=== PATIENT | male | born 1975 | race Hispanic/Latino ===

== ENCOUNTER 2020-06-07 12:03 | Observation (INO) | payer BC ==
--- NOTE | 2020-06-07 12:42 | RAD REPORT ---
EXAM DESCRIPTION: Lizz Single View06/07/2020 12:35 pm CLINICAL HISTORY: Cough COMPARISON: 2018 FINDINGS: The lungs appear clear of acute infiltrate. The heart is normal size IMPRESSION: No acute abnormalities displayed
[2020-06-07] MEDS ORDERED: METOPROLOL TAR 25 MG TAB ONE (12:44)
[2020-06-07] MEDS ORDERED: ASPIRIN 81 MG CHEWABLE TABLET ONE (12:44)
[2020-06-07] MEDS ORDERED: NA CHLORIDE 0.9% 1,000 ML ONE (12:45)
[2020-06-07 13:03] LABS: Absolute Lymphocytes (CBC) 1.4 K/uL (0.7-4.9); Basophils % 0.6 % (0-1.3); Hematocrit 43.6 % (39.6-49.0); MPV 10.6 fL (7.6-11.3); RBC Red Blood Cell Count 5.06 M/uL (4.33-5.43)
[2020-06-07 13:16] LABS: ALT/SGPT 44 U/L (12-78); AST/SGOT 21 U/L (15-37); Albumin 3.7 g/dL (3.4-5.0); Alkaline Phosphatase 74 U/L (45-117); BUN Blood Urea Nitrogen 14 mg/dL (7-18); Bicarbonate 29 mmol/L (21-32); Bilirubin Direct 0.1 mg/dL (0-0.2); Bilirubin Total 0.5 mg/dL (0.2-1.0); Glucose Level 118 mg/dL (74-106); Lipase 74 U/L (73-393); Magnesium 2.1 mg/dL (1.8-2.4); NT PRO-BNP 30 pg/mL (<125); Potassium 3.9 mmol/L (3.5-5.1); Protein, Total 7.5 g/dL (6.4-8.2); Sodium Level 142 mmol/L (136-145); Troponin (Emerg Dept Use Only) < 0.02 ng/mL (0.0-0.045)
[2020-06-07] MEDS ORDERED: ENOXAPARIN 100 MG/ML SYR SQ ONE (14:23)
--- NOTE | 2020-06-07 14:47 | EDPHYS ---
Physician Documentation [facility] Name: Alfonso Perez Age: 45 yrs Sex: Male : 1975 Arrival Date: 06/07/2020 Time: 12:03 Bed 2 Private MD: ED Physician Luis Eduardo Quinn HPI: 06/07 14:00 This 45 yrs old Male presents to ER via Ambulatory with complaints of Chest taz Pain. 14:00 The patient or guardian reports chest pain that is located primarily in the substernal taz area, anterior chest wall, left. Onset: 5 day(s) ago. The pain radiates to the left arm. Associated signs and symptoms: Pertinent positives: nausea, shortness of breath. The chest pain is described as a pressure. Duration: The patient or guardian reports multiple episodes, that have now resolved. Modifying factors: The symptoms are alleviated by remaining still, rest. Severity of pain: At its worst the pain was moderate in the emergency department the pain has resolved and did so just prior to arrival. The patient has experienced similar episodes in the past, several times. Historical: - Allergies: 12:12 No Known Allergies; sv - Home Meds: 12:49 Tribenzor 40-5-12.5 mg oral tab [Active]; jl7 - PMHx: 12:49 Hypertension; jl7 - PSHx: 12:12 None; sv - Immunization history:: Adult Immunizations. - Social history:: Smoking status: Patient denies any tobacco usage or history of. - Family history:: not pertinent. ROS: 14:00 Constitutional: Negative for fever, chills, and weight loss, Eyes: Negative for injury, taz pain, redness, and discharge, ENT: Negative for injury, pain, and discharge, Neck: Negative for injury, pain, and swelling, Cardiovascular: Negative for chest pain, palpitations, and edema, Respiratory: Negative for shortness of breath, cough, wheezing, and pleuritic chest pain, Abdomen/GI: Negative for abdominal pain, nausea, vomiting, diarrhea, and constipation, Back: Negative for injury and pain, : Negative for injury, bleeding, discharge, and swelling, MS/Extremity: Negative for injury and deformity, Skin: Negative for injury, rash, and discoloration, Neuro: Negative for headache, weakness, numbness, tingling, and seizure, Psych: Negative for depression, anxiety, suicide ideation, homicidal ideation, and hallucinations, Allergy/Immunology: Negative for hives, rash, and allergies, Endocrine: Negative for neck swelling, polydipsia, polyuria, polyphagia, and marked weight changes, Hematologic/Lymphatic: Negative for swollen nodes, abnormal bleeding, and unusual bruising. Exam: 14:01 Constitutional: This is a well developed, well nourished patient who is awake, alert, taz and in no acute distress. Head/Face: Normocephalic, atraumatic. Eyes: Pupils equal round and reactive to light, extra-ocular motions intact. Lids and lashes normal. Conjunctiva and sclera are non-icteric and not injected. Cornea within normal limits. Periorbital areas with no swelling, redness, or edema. ENT: Nares patent. No nasal discharge, no septal abnormalities noted. Tympanic membranes are normal and external auditory canals are clear. Oropharynx with no redness, swelling, or masses, exudates, or evidence of obstruction, uvula midline. Mucous membranes moist. Neck: Trachea midline, no thyromegaly or masses palpated, and no cervical lymphadenopathy. Supple, full range of motion without nuchal rigidity, or vertebral point tenderness. No Meningismus. Chest/axilla: Normal chest wall appearance and motion. Nontender with no deformity. No lesions are appreciated. Cardiovascular: Regular rate and rhythm with a normal S1 and S2. No gallops, murmurs, or rubs. Normal PMI, no JVD. No pulse deficits. Respiratory: Lungs have equal breath sounds bilaterally, clear to auscultation and percussion. No rales, rhonchi or wheezes noted. No increased work of breathing, no retractions or nasal flaring. Abdomen/GI: Soft, non-tender, with normal bowel sounds. No distension or tympany. No guarding or rebound. No evidence of tenderness throughout. Back: No spinal tenderness. No costovertebral tenderness. Full range of motion. Skin: Warm, dry with normal turgor. Normal color with no rashes, no lesions, and no evidence of cellulitis. MS/ Extremity: Pulses equal, no cyanosis. Neurovascular intact. Full, normal range of motion. Neuro: Awake and alert, GCS 15, oriented to person, place, time, and situation. Cranial nerves II-XII grossly intact. Motor strength 5/5 in all extremities. Sensory grossly intact. Cerebellar exam normal. Normal gait. Psych: Awake, alert, with orientation to person, place and time. Behavior, mood, and affect are within normal limits. 14:01 Musculoskeletal/extremity: ROM: full active range of motion, full passive range of motion, Circulation is intact in all extremities. Sensation intact. Compartment Syndrome exam of affected extremity: is normal. DVT Exam: No signs of deep vein thrombosis. no pain, no swelling, no tenderness, negative Homans' sign noted on exam, no appreciated bluish discoloration, no erythema, no increased warmth. 14:08 ECG was reviewed by the Attending Physician. [facility] Vital Signs: 12:12 BP 148 / 93; Pulse 75; Resp 18; Temp 98; Pulse Ox 100% ; Weight 124.74 kg; Height 5 ft. sv 10 in. (177.80 cm); 12:42 BP 136 / 92; Pulse 82; Resp 16; Pulse Ox 100% ; Pain 1/10; jl7 13:21 BP 131 / 84; Pulse 74; Resp 17; Pulse Ox 97% on R/A; tw2 14:20 BP 120 / 96; Pulse 69; Resp 17; Pulse Ox 98% on R/A; tw2 15:20 BP 130 / 91; Pulse 61; Resp 17; Pulse Ox 99% on R/A; tw2 16:30 BP 132 / 99; Pulse 64; Resp 15; Pulse Ox 99% ; jl7 12:12 Body Mass Index 39.46 (124.74 kg, 177.80 cm) sv MDM: 12:21 Patient medically screened. [facility] 14:02 Differential diagnosis: abnormal EKG, anxiety, coronary artery disease chest wall pain, taz cholecystitis, Cholelithiasis peptic ulcer disease, pleurisy, pulmonary embolus, stable angina, unstable angina. HEART Score: History: Moderately Suspicious (1), ECG: Non specific repolarization disturbance / LBTB / PM (1), Age: > 45 and < 65 years (1), Risk Factors: > or = 3 Risk factors for atherosclerotic disease (2), [Hypercholesterolemia] [Hypertension] [+ Family HX] [Obesity] Troponin: < or = 1 x Normal Limit (0). The patient was given aspirin in the Emergency Department. The patient's deep vein thrombosis risk score was calculated as follows: Total Score: 0. This patient was found to be at low risk for a deep vein thrombosis by using the Well's assessment criteria. The patient's pulmonary embolism risk score was calculated as follows: Total Score: 0-2 points. This patient was found to be at low risk for a pulmonary embolism by using the Well's assessment criteria. JERRY Risk Score: TOTAL SCORE = 0. Data reviewed: vital signs, nurses notes, lab test result(s), EKG, radiologic studies. Data interpreted: manager float: rate is 74 beats/min, rhythm is regular, Pulse oximetry: on room air is 97 %. Test interpretation: by ED physician or midlevel provider: ECG, plain radiologic studies. Counseling: I had a detailed discussion with the patient and/or guardian regarding: the historical points, exam findings, and any diagnostic results supporting the discharge/admit diagnosis, the presence of at least one elevated blood pressure reading (>120/80) during this emergency department visit, lab results, radiology results, the need for further work-up and treatment in the hospital. ED course: dw patient and his , very important to admit with risk and his story. 06/07 12:22 Order name: Basic Metabolic Panel; Complete Time: 13:59 06/07 12:22 Order name: CBC with Diff; Complete Time: 13:59 06/07 12:22 Order name: LFT's; Complete Time: 13:59 06/07 12:22 Order name: Magnesium; Complete Time: 13:59 06/07 12:22 Order name: NT PRO-BNP; Complete Time: 13:59 06/07 12:22 Order name: Troponin (emerg Dept Use Only); Complete Time: 13:59 06/07 12:22 Order name: XRAY Chest (1 view); Complete Time: 13:59 06/07 12:22 Order name: Lipase; Complete Time: 13:59 [facility] 06/07 12:22 Order name: EKG; Complete Time: 12:23 06/07 12:22 Order name: Cardiac monitoring; Complete Time: 12:42 06/07 12:22 Order name: EKG - Nurse/Tech; Complete Time: 12:42 06/07 12:22 Order name: IV Saline Lock; Complete Time: 12:42 06/07 12:22 Order name: Labs collected and sent; Complete Time: 12:42 [facility] 06/07 12:22 Order name: O2 Per Protocol; Complete Time: 12:42 [facility] 06/07 12:22 Order name: O2 Sat Monitoring; Complete Time: 12:42 [facility] 06/07 15:44 Order name: CONS Physician Consult EDAZ EC:08 Rate is 74 beats/min. Rhythm is regular. QRS [place] is Normal. NH interval is normal. QRS taz interval is normal. QT interval is normal. Q waves are Present in leads III, aVF. T waves are Normal. No ST changes noted. Clinical impression: NSR w/ Non-specific ST/T Changes and No evidence of ischemia. Administered Medications: 12:41 Drug: Lopressor 25 mg Route: PO; jl7 14:00 Follow up: Response: No adverse reaction jl7 12:42 Drug: NS 0.9% 1000 ml Route: IV; Rate: 125 ml/hr; Site: left antecubital; jl7 17:00 Follow up: Response: No adverse reaction; IV Status: Infusion continued upon admission jl7 12:42 Drug: Aspirin Chewable Tablet 324 mg Route: PO; jl7 13:30 Follow up: Response: No adverse reaction jl7 14:14 Drug: Lovenox 1 mg/kg Route: Sub-Q; Site: right lower abdomen; tw2 15:00 Follow up: Response: No adverse reaction jl7 14:35 Not Given (not available per pharmacy): Zocor 40 mg PO once tw2 14:36 Drug: Lipitor 10 mg Route: PO; tw2 17:00 Follow up: Response: No adverse reaction jl7 Disposition: 06/07/20 14:07 Hospitalization ordered by Maikel Ferreira for Observation. Preliminary diagnosis are Unstable angina, Chest pain, unspecified, Essential (primary) hypertension. - Bed requested for Telemetry/MedSurg (observation). - Status is Observation. jl7 - Condition is Fair. - Problem is new. - Symptoms have improved. Signatures: Dispatcher [employer] EDMS Lo Horne, RN Luis Eduardo Harley MD MD cha Wise, Tara, RN RN tw2 Herman Hook RN RN jl7 Gela Bustamante Corrections: (The following items were deleted from the chart) 12:49 12:12 PMHx: None; sv jl7 16:06 14:07 Hospitalization Ordered by Maikel Ferreira MD for Observation. Preliminary eb diagnosis is Unstable angina; Chest pain, unspecified; Essential (primary) hypertension. Bed requested for Telemetry/MedSurg (observation). Status is Observation. Condition is Fair. Problem is new. Symptoms have improved. taz 17:14 16:06 06/07/2020 14:07 Hospitalization Ordered by Maikel Ferreira MD for Observation. jl7 Preliminary diagnosis is Unstable angina; Chest pain, unspecified; Essential (primary) hypertension. Bed requested for Telemetry/MedSurg (observation). Status is Observation. Condition is Fair. Problem is new. Symptoms have improved. eb
--- NOTE | 2020-06-07 14:47 | ER ---
Nurse's Notes [facility] Name: Alfonso Perez Age: 45 yrs Sex: Male : 1975 Arrival Date: 06/07/2020 Time: 12:03 Bed 2 Private MD: Diagnosis: Unstable angina;Chest pain, unspecified;Essential (primary) hypertension Presentation: 06/07 12:10 Chief complaint: Patient states: left sided chest pain that radiates to the left arm sv started a couple of days ago. Coronavirus screen: Client denies travel out of the [place] in the last 14 days. Risk Assessment: Do you want to hurt yourself or someone else? Patient reports no desire to harm self or others. Onset of symptoms was June 05, 2020. 12:10 Method Of Arrival: Ambulatory sv 12:10 Acuity: NATASHA 3 sv 12:12 Ebola Screen: No symptoms or risks identified at this time. Initial Sepsis Screen: Does sv the patient meet any 2 criteria? No. Patient's initial sepsis screen is negative. Does the patient have a suspected source of infection? No. Patient's initial sepsis screen is negative. Historical: - Allergies: 12:12 No Known Allergies; sv - Home Meds: 12:49 Tribenzor 40-5-12.5 mg oral tab [Active]; jl7 - PMHx: 12:49 Hypertension; jl7 - PSHx: 12:12 None; sv - Immunization history:: Adult Immunizations. - Social history:: Smoking status: Patient denies any tobacco usage or history of. - Family history:: not pertinent. Screenin:42 Abuse screen: Denies threats or abuse. Denies injuries from another. Nutritional jl7 screening: No deficits noted. Tuberculosis screening: No symptoms or risk factors identified. Fall Risk IV access (20 points). Total Trivedi Fall Scale indicates No Risk (0-24 pts). Assessment: 12:42 General: Appears in no apparent distress. uncomfortable, Behavior is calm, cooperative, jl7 appropriate for age. Pain: Complains of pain in anterior aspect of left upper chest Pain radiates to left scapular area and left arm Pain currently is 1 out of 10 on a pain scale. at worst was 5 out of 10 on a pain scale. Quality of pain is described as sharp, Pain began 30 min ago. "It happened on Wednesday and then again today." Is intermittent. Neuro: Level of Consciousness is awake, alert, obeys commands, Oriented to person, place, time, situation. Cardiovascular: Denies palpitations, shortness of breath, Patient's skin is warm and dry. Respiratory: Airway is patent Respiratory effort is even, unlabored, Respiratory pattern is regular, symmetrical. Derm: Skin is pink, warm \\T\\ dry. 13:21 Reassessment: Patient appears in no apparent distress at this time. No changes from tw2 previously documented assessment. Patient and/or family updated on plan of care and expected duration. Pain level reassessed. Patient is alert, oriented x 3, equal unlabored respirations, skin warm/dry/pink. 14:20 Reassessment: Patient appears in no apparent distress at this time. No changes from tw2 previously documented assessment. Patient and/or family updated on plan of care and expected duration. Pain level reassessed. Patient is alert, oriented x 3, equal unlabored respirations, skin warm/dry/pink. 15:20 Reassessment: Patient appears in no apparent distress at this time. No changes from tw2 previously documented assessment. Patient and/or family updated on plan of care and expected duration. Pain level reassessed. Patient is alert, oriented x 3, equal unlabored respirations, skin warm/dry/pink. 16:41 Reassessment: Report given to GRACE Orta who states to give her a moment to prepare ss the room for admission. Vital Signs: 12:12 BP 148 / 93; Pulse 75; Resp 18; Temp 98; Pulse Ox 100% ; Weight 124.74 kg; Height 5 ft. sv 10 in. (177.80 cm); 12:42 BP 136 / 92; Pulse 82; Resp 16; Pulse Ox 100% ; Pain 1/10; jl7 13:21 BP 131 / 84; Pulse 74; Resp 17; Pulse Ox 97% on R/A; tw2 14:20 BP 120 / 96; Pulse 69; Resp 17; Pulse Ox 98% on R/A; tw2 15:20 BP 130 / 91; Pulse 61; Resp 17; Pulse Ox 99% on R/A; tw2 16:30 BP 132 / 99; Pulse 64; Resp 15; Pulse Ox 99% ; jl7 12:12 Body Mass Index 39.46 (124.74 kg, 177.80 cm) sv ED Course: 12:03 Patient arrived in ED. ag5 12:10 Arm band placed on. sv 12:11 Triage completed. sv 12:19 Herman Hook RN is Primary Nurse. jl7 12:21 Luis Eduardo Quinn MD is Attending Physician. taz 12:28 Primary Nurse role handed off by Herman Hook RN tw2 12:28 Tanisha Reynoso RN is Primary Nurse. tw2 12:35 XRAY Chest (1 view) In Process Unspecified. EDMS 12:42 Patient has correct armband on for positive identification. Placed in gown. Bed in low jl7 position. Call light in reach. Side rails up X2. die cut operator on. Pulse ox on. NIBP on. 12:42 Initial lab(s) drawn, by me, sent to lab. Inserted saline lock: 20 gauge in left jl7 antecubital area, using aseptic technique. Blood collected. Patient maintains SpO2 saturation greater than 95% on room air. 12:50 Primary Nurse role handed off by Tanisha Reynoso RN jl7 12:50 Herman Hook RN is Primary Nurse. jl7 14:05 Maikel Ferreira MD is Hospitalizing Provider. taz 17:14 No provider procedures requiring assistance completed. Patient admitted, IV remains in jl7 place. intact, No redness/swelling at site. Administered Medications: 12:41 Drug: Lopressor 25 mg Route: PO; jl7 14:00 Follow up: Response: No adverse reaction jl7 12:42 Drug: NS 0.9% 1000 ml Route: IV; Rate: 125 ml/hr; Site: left antecubital; jl7 17:00 Follow up: Response: No adverse reaction; IV Status: Infusion continued upon admission jl7 12:42 Drug: Aspirin Chewable Tablet 324 mg Route: PO; jl7 13:30 Follow up: Response: No adverse reaction jl7 14:14 Drug: Lovenox 1 mg/kg Route: Sub-Q; Site: right lower abdomen; tw2 15:00 Follow up: Response: No adverse reaction jl7 14:35 Not Given (not available per pharmacy): Zocor 40 mg PO once tw2 14:36 Drug: Lipitor 10 mg Route: PO; tw2 17:00 Follow up: Response: No adverse reaction jl7 Outcome: 14:07 Decision to Hospitalize by Provider. taz 17:14 Admitted to Tele accompanied by tech, via wheelchair, room 411, with chart, Report jl7 called to GRACE Murguia 17:14 Condition: stable 17:14 Discharge instructions given to patient, Instructed on the need for admit, Demonstrated understanding of instructions. 17:14 Patient left the ED. jlKimberlee 17:14 Admitted to Tele accompanied by tech, via stretcher, via wheelchair, room 411, with chart, Report called to GRACE Orta Signatures: Dispatcher [employer] EDLo Hyde RN RN Luis Eduardo Weiner MD MD cha Smirch, Shelby RN RN Tanisha Licona RN RN 2 Herman Hook RN RN jl7 Yulisa Lou 5 Corrections: (The following items were deleted from the chart) 12:49 12:12 PMHx: None; cher vargas
[2020-06-07] MEDS ORDERED: ATORVASTATIN 10 MG TAB PO ONE (15:00)
--- NOTE | 2020-06-07 15:42 | P.HP ---
Certification for Inpatient Patient admitted to: Observation With expected LOS: <2 Midnights Practitioner: I am a practitioner with admitting privileges, knowledge of patient current condition, hospital course, and medical plan of care. Services: Services provided to patient in accordance with Admission requirements found in Title 42 Section 412.3 of the Code of Federal Regulations Patient History Date of Service: 06/07/20 Primary Care Provider: Dr. Rey Reason for admission: Chest pain, r/o ACS History of Present Illness: All 45-year-old obese male presents after a 30 min episode of chest pain, associated with left arm pain and tingling. He reports he was just driving home, he was not given any exertional activities today. He reports the pain is difficult to describe common may be a combination of soreness and pressure. He denies any recent injuries, overuse, or strenuous exercise. He has had 2 other episodes of similar chest pain, both occurred while he was only walking a short distance. They occurred this past Wednesday and last Wednesday. Both episodes only lasted approximately 20 min and resolved after sitting/slowing down. This he also endorses a 2 week history of dyspnea on exertion, even with just walking from his garage to his mailbox. He called his PCP, recommended an appointment with Cardiology, however patient was scheduled for next week. The pain did resolve so upon arrival to the ED without any intervention. In the ED, EKG: Q-waves in the inferior leads, no ST changes, 1 T-wave inversion in aVL, troponin negative, BNP: 30 He otherwise denies vision changes, orthopnea, abdominal pain, dysuria, change in bowel/bladder habits, rashes, lesions, swelling. Allergies No Known Allergies Allergy (Unverified 06/07/20 17:25) Home medications list reviewed: Yes Home Medications: Olmesartan/Amlodipin/Hcthiazid [[id number] 40-5-12.5] 1 tab PO DAILY 06/07/20 - Family History Family History: Reviewed- Non-Contributory (Grandparents with [place] in their 70s) - Social History Smoking Status: Never smoker Alcohol use: Yes Caffeine use: Yes Place of Residence: Home Review of Systems 10-point ROS is otherwise unremarkable Physical Examination - Physical Exam General: Alert, In no apparent distress, Obese HEENT: Atraumatic, Mucous membr. moist/pink, EOMI, Sclerae nonicteric Neck: Supple, 2+ carotid pulse no bruit, No LAD, Without JVD or thyroid abnormality Respiratory: Clear to auscultation bilaterally, Normal air movement Cardiovascular: Regular rate/rhythm, Normal S1 S2, Edema (Trace to ankles bilaterally) Gastrointestinal: Soft and benign, Non-distended, No tenderness Musculoskeletal: No tenderness Integumentary: No rashes Neurological: Normal speech, Normal affect - Studies Laboratory Data (last 24 hrs) 06/07/20 12:32: WBC 7.0, Hgb 14.8, Hct 43.6, Plt Count 222 06/07/20 12:32: Sodium 142, Potassium 3.9, BUN 14, Creatinine 0.91, Glucose 118 H, Magnesium 2.1, Total Bilirubin 0.5, AST 21, ALT 44, Alkaline Phosphatase 74, Lipase 74 Assessment and Plan - Advance Directives Does patient have a Living Will: No Does patient have a Durable POA for Healthcare: No Physician Review Additional Text: Chest pain, unstable angina -will bring patient in for observation overnight -trend troponins, repeat EKG in the morning -echocardiogram ordered, hopefully can be done today -Cardiology consulted, patient will likely need a stress test -patient received aspirin and Lovenox, will give metoprolol and statin HTN -hypertensive here, restart home meds Time Spent Managing Pts Care (In Minutes): 55
[2020-06-07 17:25] VITALS: BMI 41.2
[2020-06-07] MEDS ORDERED: ACETAMINOPHEN 500 MG TAB PO PRN (17:25)
[2020-06-07] MEDS ORDERED: MORPHINE 2 MG/ML SYR IV PRN (18:24)
[2020-06-07 18:51] LABS: Troponin I 0.02 ng/mL (0.0-0.045)
[2020-06-07] MEDS: ENOXAPARIN 40 MG/0.4 ML SQ SCH (20:00)
[2020-06-07] MEDS ORDERED: ATORVASTATIN 40 MG TAB PO SCH (21:00)
[2020-06-07] MEDS ORDERED: METOPROLOL TAR 50 MG TAB PO SCH (21:00)
[2020-06-08 04:56] LABS: BUN Blood Urea Nitrogen 14 mg/dL (7-18); Bicarbonate 26 mmol/L (21-32); Glucose Level 110 mg/dL (74-106); Potassium 4.3 mmol/L (3.5-5.1); Sodium Level 144 mmol/L (136-145)
[2020-06-08 05:00] LABS: Absolute Lymphocytes (CBC) 2.1 K/uL (0.7-4.9); Basophils % 1.1 % (0-1.3); Hematocrit 40.9 % (39.6-49.0); Lymphocytes % 32.2 % (15.3-44.8); MPV 10.5 fL (7.6-11.3); RBC Red Blood Cell Count 4.73 M/uL (4.33-5.43)
[2020-06-08 08:12] VITALS: BP 134/84; TEMP 97.5
[2020-06-08] MEDS: ENOXAPARIN 40 MG/0.4 ML SQ SCH (08:39)
[2020-06-08] MEDS ORDERED: HCTHIAZID PO SCH (09:00)
[2020-06-08] MEDS ORDERED: AMLODIPINE 5 MG TAB PO SCH (09:00)
[2020-06-08] MEDS ORDERED: VALSARTAN 160 MG TAB PO SCH (09:00)
[2020-06-08] MEDS ORDERED: [UNRECOGNIZED DRUG - OTHER] PO SCH (09:00)
[2020-06-08] MEDS ORDERED: ASPIRIN EC 81 MG TAB PO SCH (09:00)
[2020-06-08] MEDS ORDERED: hydroCHLOROthiazide 12.5 MG CAP PO SCH (09:00)
[2020-06-08] MEDS ORDERED: AMLODIPIN PO SCH (09:00)
[2020-06-08] MEDS ORDERED: OLMESARTAN PO SCH (09:00)
[2020-06-08] MEDS ORDERED: METOPROLOL TAR 25 MG TAB PO SCH (09:00)
[2020-06-08] MEDS ORDERED: METOPROLOL TAR 50 MG TAB PO SCH (09:00)
--- NOTE | 2020-06-08 09:00 | EKG ---
Test Date: 2020-06-08 Test Time: 07:15:24 Hiv Counselor: RYAN MEASUREMENT RESULTS: Intervals: Rate: 59 CA: 170 QRSD: 98 QT: 404 QTc: 399 [place]: P: 30 CA: 170 QRS: 73 T: 103 INTERPRETIVE STATEMENTS: Sinus bradycardia Otherwise normal ECG Compared to ECG 06/07/2020 12:15:41 Sinus rhythm no longer present Myocardial infarct finding no longer present Electronically Signed On 06-08-20 08:59:49 CDT by Scott Miller
--- NOTE | 2020-06-08 09:01 | EKG ---
Test Date: 2020-06-07 Test Time: 12:15:41 Shovel Operator: MONSE MEASUREMENT RESULTS: Intervals: Rate: 74 [place]: 160 QRSD: 88 QT: 338 QTc: 375 [place]: P: 23 [place]: 160 QRS: 71 T: 85 INTERPRETIVE STATEMENTS: Normal sinus rhythm Possible Inferior infarct, age undetermined Abnormal ECG No previous ECG available for comparison Electronically Signed On 06-08-20 09:00:10 CDT by Scott Miller
[2020-06-08 09:21] VITALS: O2SAT 96
--- NOTE | 2020-06-08 10:09 | P.DS ---
Admission Date: 06/07/20 Discharge Date: 06/08/20 Primary Care Provider: Dr. Rey Disposition: ROUTINE DISCHARGE Discharge Condition: GOOD Reason for Admission: Chest pain, r/o ACS Consultations: Cardiology - Dr. Miller Brief History of Present Illness: All 45-year-old obese male presents after a 30 min episode of chest pain, associated with left arm pain and tingling. He reports he was just driving home, he was not given any exertional activities today. He reports the pain is difficult to describe common may be a combination of soreness and pressure. He denies any recent injuries, overuse, or strenuous exercise. He has had 2 other episodes of similar chest pain, both occurred while he was only walking a short distance. They occurred this past Wednesday and last Wednesday. Both episodes only lasted approximately 20 min and resolved after sitting/slowing down. This he also endorses a 2 week history of dyspnea on exertion, even with just walking from his garage to his mailbox. He called his PCP, recommended an appointment with Cardiology, however patient was scheduled for next week. The pain did resolve so upon arrival to the ED without any intervention. In the ED, EKG: Q-waves in the inferior leads, no ST changes, 1 T-wave inversion in aVL, troponin negative, BNP: 30 He otherwise denies vision changes, orthopnea, abdominal pain, dysuria, change in bowel/bladder habits, rashes, lesions, swelling. Hospital Course: Patient was kept overnight. Troponin were trended and remained <0.02. He had no recurrence of his chest pain. Unfortunately, an echocardiogram and stress test were unable to be done during this hospitalization. Cardiology was consulted and felt patient was stable to be discharged home to follow up in 3 days in the office. He was discharged home with metoprolol, statin, and aspirin. Vital Signs/Physical Exam: Temp Pulse Resp BP Pulse Ox 97.5 F 60 18 134/84 98 06/08/20 08:00 06/08/20 08:39 06/08/20 08:00 06/08/20 08:39 06/08/20 08:00 General: Alert, In no apparent distress HEENT: PERRLA, EOMI, Sclerae nonicteric Neck: Supple, JVD not distended Respiratory: Clear to auscultation bilaterally, Normal air movement Cardiovascular: Regular rate/rhythm, Normal S1 S2, Edema (trace bilaterally to ankles) Gastrointestinal: Soft and benign, Non-distended, No tenderness Musculoskeletal: No tenderness Integumentary: No rashes Neurological: Normal speech, Normal affect Laboratory Data at Discharge: WBC 6.6 K/uL (4.3-10.9) 06/08/20 04:00 Hgb 14.1 g/dL (13.6-17.9) 06/08/20 04:00 Hct 40.9 % (39.6-49.0) 06/08/20 04:00 Plt Count 183 K/uL (152-406) 06/08/20 04:00 Sodium 144 mmol/L (136-145) 06/08/20 04:00 Potassium 4.3 mmol/L (3.5-5.1) 06/08/20 04:00 BUN 14 mg/dL (7-18) 06/08/20 04:00 Creatinine 0.81 mg/dL (0.55-1.3) 06/08/20 04:00 Glucose 110 mg/dL (74-106) H 06/08/20 04:00 Magnesium 2.1 mg/dL (1.8-2.4) 06/07/20 12:32 Total Bilirubin 0.5 mg/dL (0.2-1.0) 06/07/20 12:32 AST 21 U/L (15-37) 06/07/20 12:32 ALT 44 U/L (12-78) 06/07/20 12:32 Alkaline Phosphatase 74 U/L (45-117) 06/07/20 12:32 Troponin I < 0.02 ng/mL (0.0-0.045) 06/08/20 07:52 Triglycerides 104 mg/dL (<150) 06/07/20 17:58 Cholesterol 154 mg/dL (<200) 06/07/20 17:58 HDL Cholesterol 30 mg/dL (40-60) L 06/07/20 17:58 Cholesterol/HDL Ratio 5.13 06/07/20 17:58 Lipase 74 U/L (73-393) 06/07/20 12:32 Home Medications: Olmesartan/Amlodipin/Hcthiazid [Mctdebo-Zyumqy-Jbxs 40-5-12.5] 1 tab PO DAILY 06/07/20 Aspirin [Aspirin EC 81 MG] 81 mg PO DAILY 30 Days #30 tablet. 06/08/20 Atorvastatin Calcium [Lipitor] 40 mg PO BEDTIME 30 Days #30 tab 06/08/20 Metoprolol Tartrate [Lopressor*] 25 mg PO BID 30 Days #60 tab 06/08/20 New Medications: Aspirin [Aspirin EC 81 MG] 81 mg PO DAILY 30 Days #30 tablet. Atorvastatin Calcium [Lipitor] 40 mg PO BEDTIME 30 Days #30 tab Metoprolol Tartrate [Lopressor*] 25 mg PO BID 30 Days #60 tab Patient Discharge Instructions: Follow up with Dr. Miller on Wednesday (06/11/20) as scheduled. Follow up with your PCP within 1-2 weeks. Diet: AHA Activity: Ad chin Time spent managing pt's care (in minutes): 35
--- NOTE | 2020-06-09 12:30 | CON ---
Date of Consultation: 06/08/2020 Reason For Admission: Chest pain. History Of Present Illness: Mr. Perez is a patient of Dr. Elijah Rey who has been having some dy spnea on exertion for about a week or two, saw Dr. Rey who referred him to Dr. Germain. The patie nt could not have an appointment until next week, but his symptoms got worse and he came to the [facility] en[facility] room with hypertension, shortness of breath, and chest tightness on exertion. Denied PND, ortho pnea, pedal edema, palpitation, or syncope. He has admitted to gaining significant weight recently. Denies fever or chills or cough. In the emergency room, he was noted to have a normal chest x-ray, normal EKG, normal troponin, normal BNP. His blood pressure has improved. Past Medical History: Includes hypertension. Allergies: NOTHING. Review of Systems: Negative. Social History: Negative. Family History: Noncontributory. Medications: At home include olmesartan with hydrochlorothiazide. Physical Examination: General: When I saw him, his vital signs were stable. He was afebrile. His blood pressure was norm al. HEENT: Negative. Neck: Supple with no bruit. Chest: Clear to auscultation and percussion. Cardiac: Revealed a regular rhythm and rate with an S4 gallop. No murmurs or rubs. Abdomen: Benign. Extremities: Revealed no clubbing, cyanosis, or edema. Diagnostic Data: All diagnostic data was normal. Impression And Plan: This is a patient with hypertension, obesity, symptoms of dyspnea on exertion t hat could be related to hypertension and obesity. It certainly could be related to coronary artery d isease. His EKG, chest x-ray, and troponin are negative. I am comfortable with him going home. I w ill have him come to my office on next morning when I will have him do an echocardiogram and stress t est before making final decisions for any more invasive procedures. He should be on metoprolol. I w ill add an aspirin in addition to his olmesartan and hydrochlorothiazide. He can go home today. NILS/MADDIEL Voice ID: [id number] Report ID: [id number]
== END 2020-06-08 11:15 | disposition home or self-care (01) ==
LOC: ER 12:03 → ERHOLD 15:43 → 4TH 16:44
PROVIDERS: ADMIT Hospitalist; ATTEND Hospitalist
DX: I20.0 Unstable angina (principal); R06.09 Other forms of dyspnea; R07.9 Chest pain, unspecified; I10 Essential (primary) hypertension; E66.9 Obesity, unspecified; R94.31 Abnormal electrocardiogram [ECG] [EKG]; Z68.39 Body mass index [BMI] 39.0-39.9, adult; Z20.828 Contact with and (suspected) exposure to other viral communicable diseases; Z79.899 Other long term (current) drug therapy; Z82.49 Family history of ischemic heart disease and other diseases of the circulatory system
CPT/HCPCS: 96361; 93005 ×2; 85025 ×2; 80048 ×2; 36415 ×2; 83735; 80061; 80076; 84484 ×3; 83690; 83880; 71045; 94760 ×3; 96360; 96372; 99285; U0002; J1650 ×2; J7030; G0378 ×3

== ENCOUNTER 2020-06-12 06:34 | Day surgery (SDC) | payer BC ==
[2020-06-11 14:33] LABS: Protime INR 1.1
[2020-06-12] MEDS ORDERED: HEPA 1000U/500MLS 1,000 UNIT/500 ML BAG IV ONE (06:56)
[2020-06-12] MEDS ORDERED: MIDAZOLAM HCL 2 MG/2 ML INJ ONE ×2 (06:57→07:42)
[2020-06-12] MEDS ORDERED: ATROPINE SULF 1 MG/10 ML SYR IV ONE (06:57)
[2020-06-12] MEDS ORDERED: FENTANYL CITR 100 MCG/2 ML ONE (06:57)
[2020-06-12] MEDS ORDERED: LIDOCAINE 1% MPF 30 ML VIAL ONE (06:57)
[2020-06-12] MEDS ORDERED: NA CHLORIDE 0.9% 50 ML ONE (06:58)
[2020-06-12] MEDS ORDERED: NA CHLORIDE 0.9% 500 ML ONE (07:03)
[2020-06-12] MEDS ORDERED: NITROGLYCERIN 100 MCG/ML SYR (for cath lab use only) IV ONE (07:55)
[2020-06-12] MEDS ORDERED: NITROGLYCERIN/D5W 25 MG/250 ML BTL IV ONE (07:55)
[2020-06-12] MEDS ORDERED: ASPIRIN 325 MG TAB ONE (08:07)
[2020-06-12] MEDS ORDERED: PRASUGREL (EFFIENT) 10 MG TAB ONE (08:07)
[2020-06-12] MEDS ORDERED: ONDANSETRON 4 MG/2 ML VIAL IV PRN (09:32)
[2020-06-12] MEDS ORDERED: MORPHINE 4 MG/ML SYR IV PRN (09:33)
[2020-06-12] MEDS ORDERED: NA CHLORIDE 0.9% 1,000 ML IV SCH (10:00)
[2020-06-12] MEDS ORDERED: ACETAMINOPHEN 325 MG TABLET PO PRN (10:00)
[2020-06-12] MEDS ORDERED: NITROGLYCERIN 0.4 MG/TAB SL PRN (10:00)
[2020-06-12 11:41] VITALS: BMI 41.1
[2020-06-12] MEDS ORDERED: ATORVASTATIN 80 MG TAB PO SCH (21:00)
[2020-06-12 22:26] VITALS: O2SAT 97
[2020-06-13 06:00] LABS: Absolute Lymphocytes (CBC) 1.5 K/uL (0.7-4.9); Basophils % 0.2 % (0-1.3); Hematocrit 40.6 % (39.6-49.0); Lymphocytes % 17.2 % (15.3-44.8); MPV 10.2 fL (7.6-11.3); RBC Red Blood Cell Count 4.74 M/uL (4.33-5.43)
[2020-06-13 06:05] LABS: Potassium 3.9 mmol/L (3.5-5.1)
--- NOTE | 2020-06-13 07:25 | OP ---
Date of Procedure: 06/12/2020 Surgeon: Scott Miller MD Procedure: Left heart catheterization with primary stent of the LAD. Description Of Procedure: Mr. Perez is a 45-year-old Latin-Stateless male, who came in with chest pa in approximately 72 hours ago to the hospital. ME was ruled out. He came to my office yesterday and underwent a stress test and an echocardiogram. His echocardiogram revealed normal ejection fraction without any wall motion abnormalities, but his stress test was positive for ischemia. He had some c hest pain with stress test. He was set up for an outpatient heart catheterization today. He was bro ught to the labor and delivery nurse on 06/12/2020, prepped and draped in the routine sterile fashion. A 6-Polish sh eath was introduced in the right common femoral artery successfully. Hardik catheter left and right were used to select the right main and the left main. The patient was found to have moderate to sev ere disease in the OM, his RCA was dominant, and he has minor plaquing in it. He had an LAD stenosis about 80% to 90% right at the septal perforated level. Intervention was planned. XB LAD 3.5 with s chrissy hole was used as a guide. A 0.014 Tekoa wire was used to exchange length to cross the lesion umaña ccessfully. A 3.0 x 24 Synergy stent was placed in the LAD with 0% residual. The patient tolerated the procedure well. Complications: There were no complications. Estimated Blood Loss: 5 mL. Antibiotics: The patient received aspirin, Effient, and Angiomax during the procedure. Anesthesia: Total conscious sedation was 45 minutes. Plan: Angiography in the groin area was within normal limit. Angio-Seal was used to close the case. The patient remained in the hospital overnight. He will be on aspirin, Plavix, beta blockers, and statin. The case was discussed with the patient, his , and Dr. Elijah Rey. He will stay in [facility] overnight and he will be discharged on 06/13/2020. I will see him in the office in the n ext 2 weeks. NILS/ROBBIN Voice ID: [id number] Report ID: [id number]
[2020-06-13 08:29] VITALS: BP 150/96; TEMP 97
[2020-06-13] MEDS ORDERED: ASPIRIN 81 MG CHEWABLE TABLET PO SCH (09:00)
[2020-06-13] MEDS ORDERED: CLOPIDOGREL 75 MG TABLET PO SCH (09:00)
[2020-06-13] MEDS ORDERED: METOPROLOL XL 50 MG TAB PO SCH (09:00)
--- NOTE | 2020-06-13 13:37 | DS ---
Date of Discharge: 06/13/2020 Mr. Perez was admitted on 06/12/2020. He has been discharged on 06/13/2020. Admission Diagnosis: Coronary artery disease. Discharge Diagnosis: Coronary artery disease status post LAD stent. Procedure: While in the hospital included a heart catheterization and primary LAD stent. Discharge Medications: Aspirin, Lipitor, Toprol, and Plavix. Discharge Instructions: For him to follow up in my office in 2 weeks. He can resume normal activiti es in 4 days. Discharge diet instruction with low-fat and low-cholesterol diet. Hospital Course: Mr. Perez is a patient with hypertension, diabetes, dyslipidemia, obesity, family history of heart disease, who had symptoms consistent with unstable angina, positive stress test, nor mal echocardiogram, had a catheterization yesterday as an outpatient. Has OM disease, mild RCA disea se. The OM is not dominant. He had LAD stenosis right after the first septal. A stent was placed s uccessfully with 0% residual. Overnight, he had no complications and was in normal rhythm. His righ t groin site was intact. He had no hematoma with good distal pulses. He will be discharged with the above-mentioned instructions. NILS/ROBBIN Voice ID: [id number] Report ID: [id number]
== END 2020-06-13 09:29 | disposition home or self-care (01) ==
LOC: CCL 06:34 → 2ND 08:35 → CCL 06-13 09:29
DX: I25.110 Atherosclerotic heart disease of native coronary artery with unstable angina pectoris (principal); I10 Essential (primary) hypertension; E78.6 Lipoprotein deficiency; E78.5 Hyperlipidemia, unspecified; E11.9 Type 2 diabetes mellitus without complications; E66.09 Other obesity due to excess calories; Z20.828 Contact with and (suspected) exposure to other viral communicable diseases; Z82.49 Family history of ischemic heart disease and other diseases of the circulatory system
CPT/HCPCS: 93005; 85025; 80048; 36415 ×2; 85610; 85347 ×2; 85730; 92928; 93454; C1893; C1760; C1725; J2250 ×2; J3010; J0583; J7040; J1644

== ENCOUNTER 2022-10-12 15:29 | Emergency (ER) | payer BC ==
--- OUTSIDE RECORDS SUMMARY | 2022-10-12 15:36 | XMS REPORT | Continuity of Care Document ---
:1975 Author Organization [facility] t Address [address] [place] [address] Care Team Providers Name Role Phone KAY FERNANDEZ Attending Clinician Unavailable ERICK POTTS Attending Clinician Unavailable FARZANEH QUINTERO Attending Clinician Unavailable KAY FERNANDEZ Admitting Clinician Unavailable Payers Payer Name Policy Type Policy Number Effective Date Expiration Date S our [id number] PPO AND [id number] 2020 00:00:00 OUT OF STATE Problems This patient has no known problems. Allergies, Adverse Reactions, Alerts This patient has no known allergies or adverse reactions. Medications This patient has no known medications. Procedures This patient has no known procedures. Encounters Start End Encounter Admission Attending Care Care Encounter Source Date/Time Date/Time Type Type Clinicians Facility Department ID 2022-09-25 Outpatient [facility] [id number] [place] 09:30:04 [id number] [facility] 2022-09-23 Outpatient [facility] [id number] [place] 08:39:32 [id number] [facility] 2022-09-22 Outpatient [facility] [id number] [place] 10:01:22 [id number] [facility] 2022-10-15 2022-10-15 Outpatient REBECCA [facility] [id number] [place] 14:15:00 14:15:00 KAY [facility] 2022-09-16 2022-09-20 Inpatient Shayna POTTS [id number] 22:19:00 14:00:00 ERICK 2022-09-16 2022-09-16 Outpatient [id number] 23:30:00 23:59:00 FARZANEH Results This patient has no known results.
[2022-10-12] MEDS ORDERED: NITROGLYCERIN 0.4 MG/TAB SL ONE (16:04)
[2022-10-12] MEDS ORDERED: NA CHLORIDE 0.9% 500 ML ONE (16:04)
[2022-10-12 16:15] LABS: Absolute Lymphocytes (CBC) 1.4 K/uL (0.7-4.9); Hematocrit 44.1 % (39.6-49.0); Lymphocytes % 20.6 % (15.3-44.8); MCV 87.8 fL (80-100); MPV 10.2 fL (7.6-11.3); RBC Red Blood Cell Count 5.02 M/uL (4.33-5.43)
[2022-10-12 16:19] LABS: Protime INR 1.15
--- NOTE | 2022-10-12 16:36 | RAD REPORT ---
EXAM DESCRIPTION: RAD - Chest Single View - 10/12/2022 4:25 pm CLINICAL HISTORY: CHEST PAIN Chest pain. COMPARISON: Chest Single View dated 06/07/2020; Chest Pa And Lat (2 Views) dated 04/13/2019 FINDINGS: Portable technique limits examination quality. The lungs are grossly clear. The heart is normal in size. No displaced fractures. IMPRESSION: No acute intrathoracic process suspected.
[2022-10-12 16:54] LABS: Bilirubin Direct 0.2 mg/dL (0-0.2); Bilirubin Total 0.6 mg/dL (0.2-1.0); Magnesium 1.9 mg/dL (1.6-2.4); Potassium 3.6 mmol/L (3.5-5.1); Protein, Total 7.6 g/dL (6.4-8.2); Troponin High Sensitivity 7.9 pg/mL (<58.9)
--- NOTE | 2022-10-12 18:26 | RAD REPORT ---
EXAM DESCRIPTION: CT - Head Brain Wo Cont - 10/12/2022 6:15 pm CLINICAL HISTORY: dizziness Headache, drowsiness COMPARISON: No comparisons TECHNIQUE: All CT scans are performed using dose optimization technique as appropriate and may inclu de automated exposure control or mA/KV adjustment according to patient size. FINDINGS: No intracranial hemorrhage, hydrocephalus or extra-axial fluid collection.No areas of brai n edema or evidence of midline shift. The paranasal sinuses and mastoids are clear. The calvarium is intact. IMPRESSION: No acute intracranial abnormality.
[2022-10-12] MEDS ORDERED: ASPIRIN 81 MG CHEWABLE TABLET ONE (19:17)
--- NOTE | 2022-10-12 20:44 | ER ---
Nurse's Notes [facility] Name: Alfonso Perez Age: 47 yrs Sex: Male : 1975 Arrival Date: 10/12/2022 Time: 15:29 Bed 3 Private MD: Diagnosis: Chest pain, unspecified;Dizziness and giddiness Presentation: 10/12 15:33 Chief complaint: Patient states: chest tightness, SOB on exertion, started today, had ss stents placed on Sep 18 at [place] , had STEMI. Coronavirus screen: At this time, the client does not indicate any symptoms associated with coronavirus-19. Ebola Screen: Patient negative for fever greater than or equal to 101.5 degrees Fahrenheit, and additional compatible Ebola Virus Disease symptoms Patient denies exposure to infectious person. Patient denies travel to an Ebola-affected area in the 21 days before illness onset. No symptoms or risks identified at this time. Initial Sepsis Screen: Does the patient meet any 2 criteria? No. Patient's initial sepsis screen is negative. Does the patient have a suspected source of infection? No. Patient's initial sepsis screen is negative. Risk Assessment: Do you want to hurt yourself or someone else? Patient reports no desire to harm self or others. Onset of symptoms was October 12, 2022. 15:33 Method Of Arrival: Ambulatory ss 15:33 Acuity: NATASHA 2 ss Historical: - Allergies: 15:34 No Known Allergies; ss - Home Meds: 15:34 Plavix 75 mg Oral tab 1 tab once daily [Active]; ss - PMHx: 15:34 Hypertension; Myocardial infarction; ss - PSHx: 15:34 cardiac stents; ss - Immunization history:: Adult Immunizations Client reports receiving the 2nd dose of the Covid vaccine. - Social history:: Smoking status: Patient denies any tobacco usage or history of. Screenin:48 [facility] ED Fall Risk Assessment (Adult) History of falling in the last 3 months, db including since admission No falls in past 3 months (0 pts) Confusion or Disorientation No (0 pts) Intoxicated or Sedated No (0 pts) Impaired Gait No (0 pts) Mobility Assist Device Used No (0 pt) Altered Elimination No (0 pt) Score/Fall Risk Level 0 - 2 = Low Risk Oriented to surroundings, Maintained a safe environment. Abuse screen: Denies threats or abuse. Denies injuries from another. Nutritional screening: On. Tuberculosis screening: No symptoms or risk factors identified. Assessment: 15:47 Reassessment: Patient appears in no apparent distress at this time. No changes from db previously documented assessment. Patient and/or family updated on plan of care and expected duration. Pain level reassessed. Patient is alert, oriented x 3, equal unlabored respirations, skin warm/dry/pink. CENTER CHEST PAIN STARTED THIS AM AT APPROXIMATELY 1030 OR 1100. General: Appears in no apparent distress. comfortable, Behavior is calm, cooperative, appropriate for age. Pain: Complains of pain in chest Pain does not radiate. Pain began 4 hours ago. Neuro: No deficits noted. Level of Consciousness is awake, alert, obeys commands, Oriented to person, place, time, situation, Moves all extremities. Speech is normal, Pupils are PERRLA. Cardiovascular: Reports chest pain, Capillary refill < 3 seconds Rhythm is sinus rhythm. Respiratory: No deficits noted. Airway is patent Respiratory effort is even, unlabored, Respiratory pattern is regular, symmetrical. 16:13 Reassessment: Patient appears in no apparent distress at this time. No changes from db previously documented assessment. Patient and/or family updated on plan of care and expected duration. Pain level reassessed. Patient is alert, oriented x 3, equal unlabored respirations, skin warm/dry/pink. Patient states feeling better. 17:40 Reassessment: Patient appears in no apparent distress at this time. Patient and/or db family updated on plan of care and expected duration. Pain level reassessed. Patient is alert, oriented x 3, equal unlabored respirations, skin warm/dry/pink. PATIENT AMBULATORY TO RESTROOM WITH STEADY GATE. 18:51 Reassessment: Patient appears in no apparent distress at this time. No changes from db previously documented assessment. Patient and/or family updated on plan of care and expected duration. Pain level reassessed. Patient is alert, oriented x 3, equal unlabored respirations, skin warm/dry/pink. Patient denies pain at this time. 19:15 Reassessment: Patient is alert, oriented x 3, equal unlabored respirations, skin jj7 warm/dry/pink. PT SITTING IN BED TALKING TO . STATES NO CP OR DISTRESS AT THIS TIME. VS STABLE. NO NEEDS AT THIS TIME Patient states symptoms have improved. Vital Signs: 15:33 BP 144 / 106; Pulse 81; Resp 16; Temp 98.8; Pulse Ox 100% on R/A; Weight 122.47 kg; ss Height 5 ft. 10 in. (177.80 cm); 15:49 BP 156 / 97; Pulse 89; Resp 27; Pulse Ox 98% on R/A; db 16:00 BP 159 / 97; Pulse 76; Resp 14; Pulse Ox 100% on R/A; db 16:05 BP 146 / 109; Pulse 87; Resp 16; Pulse Ox 100% on R/A; db 16:30 BP 127 / 94; Pulse 102; Resp 16; Pulse Ox 99% on R/A; db 17:30 BP 139 / 98; Pulse 78; Resp 18; Pulse Ox 100% on R/A; db 18:30 BP 137 / 94; Pulse 88; Resp 18; Pulse Ox 100% on R/A; db 20:03 BP 127 / 100; Pulse 71; Resp 19 S; Pulse Ox 98% on R/A; as6 20:48 BP 129 / 94; Pulse 74; Resp 21 S; Pulse Ox 98% on R/A; as6 15:33 Body Mass Index 38.74 (122.47 kg, 177.80 cm) ss Vitals: 16:30 Cardiac Rhythm Assessment Regular Sinus rhythm W/unifocal PVC's. db ED Course: 15:29 Patient arrived in ED. rg4 15:34 Triage completed. ss 15:35 Arm band placed on. ss 15:41 [facility]ios [facility] cp 15:41 Luis Eduardo Quinn MD is Attending Physician. cp 15:46 Mai Mckeon, GRACE is Primary Nurse. db 15:49 Patient maintains SpO2 saturation greater than 95% on room air. db 15:58 Inserted saline lock: 20 gauge in right antecubital area, using aseptic technique. db Blood collected. 16:27 XRAY Chest (1 view) In Process Unspecified. EDMS 16:52 Patient has correct armband on for positive identification. Client placed on continuous db cardiac and pulse oximetry monitoring. NIBP monitoring applied. Warm blanket given. 18:17 CT Head Brain wo Cont In Process Unspecified. EDMS 18:21 LAB Add On Sent. db 19:02 Report given to [employer] PERSON. db 19:30 Troponin High Sensitivity Sent. jj7 20:53 No provider procedures requiring assistance completed. IV discontinued, intact, as6 bleeding controlled, No redness/swelling at site. Pressure dressing applied. Administered Medications: 16:00 Drug: Nitroglycerin 0.4 mg Route: Sublingual; db 17:36 Follow up: Response: No adverse reaction; Pain is decreased db 16:00 Drug: NS 0.9% 500 ml Route: IV; Rate: bolus; Site: right antecubital; db 18:19 Follow up: Response: No adverse reaction; IV Status: Completed infusion; IV Intake: db 500ml 19:19 Drug: Aspirin Chewable Tablet 324 mg Route: PO; jj7 20:53 Follow up: Response: No adverse reaction as6 Medication: 15:49 VIS not applicable for this client. db Intake: 18:19 IV: 500ml; Total: 500ml. db Outcome: 20:43 Discharge ordered by MD. cp 20:53 Discharged to home ambulatory, with family. as6 20:53 Condition: stable 20:53 Discharge instructions given to patient, Instructed on discharge instructions, follow up and referral plans. Demonstrated understanding of instructions, follow-up care. 20:53 Patient left the ED. as6 Signatures: Dispatcher [employer] EDMS Christiana lOiva RN RN Luis Eduardo Arroyo PA PA cp Garcia, Rubi rg4 Chuck Pierre RN RN as6 Natasha Bustamante RN RN jjMai Dumas RN RN db
--- NOTE | 2022-10-12 20:44 | EDPHYS ---
Physician Documentation [facility] Name: Alfonso Perez Age: 47 yrs Sex: Male : 1975 Arrival Date: 10/12/2022 Time: 15:29 Bed 3 Private MD: ED Luis Eduardo Oliva HPI: 10/12 15:55 This 47 yrs old Male presents to ER via Ambulatory with complaints of Chest cp Tightness, Dizziness, Arm Pain. 15:55 The patient or guardian reports chest pain that is located primarily in the anterior cp chest wall, left. 15:55 Onset: today, about 1100 while at work. Associated signs and symptoms: Pertinent cp positives: dizziness, shortness of breath, left arm pain. The chest pain is described as a pressure. Duration: The patient or guardian reports a single episode, that is still ongoing, but improving. Patient with PMHX significant for HTN and reports history of cardiac stent placement times 2. Historical: - Allergies: 15:34 No Known Allergies; ss - Home Meds: 15:34 Plavix 75 mg Oral tab 1 tab once daily [Active]; ss - PMHx: 15:34 Hypertension; Myocardial infarction; ss - PSHx: 15:34 cardiac stents; ss - Immunization history:: Adult Immunizations Client reports receiving the 2nd dose of the Covid vaccine. - Social history:: Smoking status: Patient denies any tobacco usage or history of. ROS: 16:00 Constitutional: Negative for body aches, chills, fever, poor PO intake. cp 16:00 Eyes: Negative for injury, pain, redness, and discharge. cp 16:00 Cardiovascular: Positive for chest pain, Negative for edema, palpitations. 16:00 Respiratory: Negative for cough, shortness of breath, wheezing. 16:00 Abdomen/GI: Negative for abdominal pain, nausea, vomiting, and diarrhea. 16:00 : Negative for urinary symptoms. 16:00 Neuro: Positive for dizziness, Negative for altered mental status, numbness, syncope, weakness. 16:00 All other systems are negative. cp Exam: 15:46 ECG was reviewed by the Attending Physician. cp 16:05 Constitutional: The patient appears in no acute distress, alert, awake, cp non-diaphoretic, non-toxic, well developed, well nourished. 16:05 Head/Face: Normocephalic, atraumatic. cp 16:05 Eyes: Periorbital structures: appear normal, Conjunctiva: normal, no exudate, no injection, Sclera: no appreciated abnormality, Lids and lashes: appear normal, bilaterally. 16:05 ENT: External ear(s): are unremarkable, Nose: is normal, Mouth: Lips: moist, Oral mucosa: pink and intact, moist, Posterior pharynx: Airway: no evidence of obstruction, patent. 16:05 Chest/axilla: Inspection: normal, Palpation: is normal, no crepitus, no tenderness. 16:05 Cardiovascular: Rate: normal, Rhythm: regular, Edema: is not appreciated, JVD: is not appreciated. 16:05 Respiratory: the patient does not display signs of respiratory distress, Respirations: normal, no use of accessory muscles, no retractions, labored breathing, is not present, Breath sounds: are clear throughout, no decreased breath sounds, no stridor, no wheezing. 16:05 Abdomen/GI: Inspection: abdomen appears normal, Palpation: abdomen is soft and non-tender, in all quadrants. 16:05 Back: pain, is absent, ROM is normal. 16:05 Neuro: Orientation: to person, place \T\ time. Mentation: is normal, Motor: moves all fours, strength is normal, Sensation: is normal. 19:47 ECG was reviewed by the Attending Physician. cp Vital Signs: 15:33 BP 144 / 106; Pulse 81; Resp 16; Temp 98.8; Pulse Ox 100% on R/A; Weight 122.47 kg; ss Height 5 ft. 10 in. (177.80 cm); 15:49 BP 156 / 97; Pulse 89; Resp 27; Pulse Ox 98% on R/A; db 16:00 BP 159 / 97; Pulse 76; Resp 14; Pulse Ox 100% on R/A; db 16:05 BP 146 / 109; Pulse 87; Resp 16; Pulse Ox 100% on R/A; db 16:30 BP 127 / 94; Pulse 102; Resp 16; Pulse Ox 99% on R/A; db 17:30 BP 139 / 98; Pulse 78; Resp 18; Pulse Ox 100% on R/A; db 18:30 BP 137 / 94; Pulse 88; Resp 18; Pulse Ox 100% on R/A; db 20:03 BP 127 / 100; Pulse 71; Resp 19 S; Pulse Ox 98% on R/A; as6 20:48 BP 129 / 94; Pulse 74; Resp 21 S; Pulse Ox 98% on R/A; as6 15:33 Body Mass Index 38.74 (122.47 kg, 177.80 cm) ss MDM: 15:41 Patient medically screened. cp 16:00 Differential diagnosis: acute UT, angina, pulmonary embolism, pneumonia. cp 16:00 Differential diagnosis: abnormal EKG, acute myocardial infarction, acute pericarditis, cp anxiety, pericarditis, pleurisy, pneumonia, pneumothorax, stable angina, thoracic aortic disection, unstable angina. 20:39 Data reviewed: vital signs, nurses notes, lab test result(s), EKG, radiologic studies, cp plain films. Consideration of Admission/Observation. I considered the following discharge prescriptions or medication management in the emergency department Medications were administered in the Emergency Department. See MAR. Independent interpretation of the following test(s) in the Emergency Department EKG: See my EKG interpretation above X-Ray: My interpretation is chest xray negative for infiltrates. Care significantly affected by the following chronic conditions: Hypertension. Counseling: I had a detailed discussion with the patient and/or guardian regarding: the historical points, exam findings, and any diagnostic results supporting the discharge/admit diagnosis, lab results, radiology results, to return to the emergency department if symptoms worsen or persist or if there are any questions or concerns that arise at home, Patient reports having appt on 10-15-2022 with primary continuity reader. Response to treatment: the patient's symptoms have markedly improved after treatment, and as a result, I will discharge patient. Special discussion: Based on the patient's history, exam, and Dx evaluation, there is no indication for emergent intervention or inpatient Tx. It is understood by the patient/guardian that if the Sx's persist or worsen they need to return immediately for re-evaluation. 20:39 The patient was given aspirin in the Emergency Department. cp 10/12 15:46 Order name: Basic Metabolic Panel; Complete Time: 17:25 cp 10/12 17:25 Interpretation: Normal except: GLUC 111. cp 10/12 15:46 Order name: CBC with Diff; Complete Time: 16:42 cp 10/12 15:46 Order name: LFT's; Complete Time: 17:25 cp 10/12 15:46 Order name: Magnesium; Complete Time: 17:25 cp 10/12 15:46 Order name: NT PRO-BNP; Complete Time: 17:25 cp 10/12 15:46 Order name: PT-INR; Complete Time: 16:42 cp 10/12 16:42 Interpretation: Reviewed. cp 10/12 15:46 Order name: Troponin HS; Complete Time: 17:25 cp 10/12 15:46 Order name: XRAY Chest (1 view); Complete Time: 16:42 cp 10/12 16:43 Interpretation: Report review. cp 10/12 16:45 Order name: CT Head Brain wo Cont; Complete Time: 18:56 cp 10/12 18:56 Interpretation: Report reviewed. cp 10/12 17:30 Order name: D-Dimer; Complete Time: 18:02 cp 10/12 18:02 Interpretation: Reviewed. cp 10/12 17:30 Order name: LAB Add On cp 10/12 19:19 Order name: Troponin High Sensitivity; Complete Time: 20:34 cp 10/12 20:35 Interpretation: Troponin HS 9.1; Reviewed. cp 10/12 15:46 Order name: EKG; Complete Time: 15:47 cp 10/12 15:46 Order name: Cardiac monitoring; Complete Time: 16:06 cp 10/12 15:46 Order name: EKG - Nurse/Tech; Complete Time: 15:50 cp 10/12 15:46 Order name: IV Saline Lock; Complete Time: 16:06 cp 10/12 15:46 Order name: Labs collected and sent; Complete Time: 16:06 cp 10/12 15:46 Order name: O2 Per Protocol; Complete Time: 16:06 cp 10/12 15:46 Order name: O2 Sat Monitoring; Complete Time: 16:06 cp 10/12 19:20 Order name: EKG; Complete Time: 19:22 cp 10/12 19:20 Order name: EKG - Nurse/Tech; Complete Time: 20:03 cp EC:46 Rate is 96 beats/min. Rhythm is regular. SC interval is normal. QRS interval is cp prolonged at 102 msec. QT interval is normal. T waves are Inverted in lead aVR. Interpreted by me. Reviewed by me. 19:47 Rate is 80 beats/min. Rhythm is regular. SC interval is normal. QRS interval is cp prolonged at 104 msec. QT interval is normal. T waves are Inverted in lead aVR. Interpreted by me. Reviewed by me. Administered Medications: 16:00 Drug: Nitroglycerin 0.4 mg Route: Sublingual; db 17:36 Follow up: Response: No adverse reaction; Pain is decreased db 16:00 Drug: NS 0.9% 500 ml Route: IV; Rate: bolus; Site: right antecubital; db 18:19 Follow up: Response: No adverse reaction; IV Status: Completed infusion; IV Intake: db 500ml 19:19 Drug: Aspirin Chewable Tablet 324 mg Route: PO; jj7 20:53 Follow up: Response: No adverse reaction as6 Disposition Summary: 10/12/22 20:43 Discharge Ordered Location: Home cp Problem: new cp Symptoms: have improved cp Condition: Stable cp Diagnosis - Chest pain, unspecified cp - Dizziness and giddiness cp Followup: cp - With: Private Physician - When: 2 - 3 days - Reason: Recheck today's complaints Discharge Instructions: - Discharge Summary Sheet cp - Nonspecific Chest Pain, Adult cp - Dizziness cp - Aspirin and Your Heart cp Forms: - Medication Reconciliation Form cp - Thank You Letter cp - Antibiotic Education cp - Prescription Opioid Use cp Signatures: Dispatcher [employer] EDMS Christiana Oliva RN RN Luis Eduardo Arroyo PA PA cp Natasha Bustamante RN RN jj7 Mai Mckeon RN RN db Chuck Pierre RN as6 Corrections: (The following items were deleted from the chart) 20:35 20:35 Reviewed. cp cp
[2022-10-12 21:22] VITALS: TEMP 98.8
[2022-10-12 21:44] VITALS: O2SAT 98
[2022-10-12 21:45] VITALS: BP 129/94
--- NOTE | 2022-10-13 14:22 | EKG ---
Test Date: 2022-10-12 Test Time: 19:41:22 City Manager: MEASUREMENT RESULTS: Intervals: Rate: 80 MN: 150 QRSD: 104 QT: 396 QTc: 456 [place]: P: 22 MN: 150 QRS: 54 T: 32 INTERPRETIVE STATEMENTS: Normal sinus rhythm Inferior infarct, age undetermined Abnormal ECG Electronically Signed On 10-13-22 14:21:36 PAPER PRODUCTS SUPERVISOR by Maximino Shoemaker
--- NOTE | 2022-10-13 14:24 | EKG ---
Test Date: 2022-10-12 Test Time: 15:42:23 Automotive Engineering Technician: JUAN CARLOS MEASUREMENT RESULTS: Intervals: Rate: 96 [place]: 126 QRSD: 102 QT: 362 QTc: 457 [place]: P: 13 [place]: 126 QRS: 67 T: 32 INTERPRETIVE STATEMENTS: Normal sinus rhythm with sinus arrhythmia Inferior infarct, age undetermined Abnormal ECG Compared to ECG 06/08/2020 07:15:24 Myocardial infarct finding now present Sinus bradycardia no longer present Electronically Signed On 10-13-22 14:22:05 FEDERAL MEDIATOR by Maximino Shoemaker
== END 2022-10-12 20:53 | disposition home or self-care (01) ==
LOC: ER 15:29
DX: R07.89 Other chest pain (principal); R42 Dizziness and giddiness; I10 Essential (primary) hypertension; I25.2 Old myocardial infarction; Z79.01 Long term (current) use of anticoagulants; Z95.818 Presence of other cardiac implants and grafts
CPT/HCPCS: 96361; 93005 ×2; 85025; 80048; 36415; 83735; 85610; 85379; 80076; 84484 ×2; 83880; 70450; 71045; 96360; 99285; J7040